=== PATIENT | male | born 1975 | race American Indian/Alaskan Native ===

== ENCOUNTER 2017-10-11 17:35 | Emergency (ER) | payer SELFPAY ==
[2017-10-11 18:14] VITALS: BP 115/79
== END 2017-10-11 20:45 | disposition left against medical advice (07) ==
LOC: ED 17:35
DX: M54.2 Cervicalgia (principal); Z53.21 Procedure and treatment not carried out due to patient leaving prior to being seen by health care provider

== ENCOUNTER 2017-10-23 16:49 | Emergency (ER) | payer MEDICAID ==
[2017-10-23 17:01] VITALS: BP 98/74
[2017-10-23 17:41] LABS: Bilirubin,Urine NEG (Negative); Blood,Urine NEG (Negative); Color,Urine Yellow (Yellow); Mucus,Urine FEW /HPF; Protein,Urine <15 mg/dL mg/dL (Negative)
== END 2017-10-23 17:30 | disposition left against medical advice (07) ==
LOC: ED 16:49
DX: Z53.21 Procedure and treatment not carried out due to patient leaving prior to being seen by health care provider (principal)
CPT/HCPCS: 81001; 82962

== ENCOUNTER 2017-10-26 16:48 | Emergency (ER) | payer MEDICAID ==
[2017-10-26 16:59] VITALS: BP 104/66
== END 2017-10-26 17:30 | disposition left against medical advice (07) ==
LOC: ED 16:48
DX: R10.9 Unspecified abdominal pain (principal); Z53.21 Procedure and treatment not carried out due to patient leaving prior to being seen by health care provider

== ENCOUNTER 2017-11-14 18:04 | Emergency (ER) | payer MEDICAID ==
[2017-11-14 18:36] VITALS: BP 107/77
[2017-11-14 19:16] LABS: Bilirubin,Urine NEG (Negative); Blood,Urine NEG (Negative); Color,Urine Yellow (Yellow); Protein,Urine <15 mg/dL mg/dL (Negative)
[2017-11-14 19:19] LABS: Basophils % (Auto) 1.2 % (0.0-1.8); Eosinophils # (Auto) 0.3 K/mm3 (0.0-0.4); Eosinophils % (Auto) 6.9 % (0.0-4.3); Hematocrit 45.6 % (35.5-45.6); Hemoglobin 15.1 gm/dl (11.8-15.2); Lymphocytes # (Auto) 1.7 K/mm3 (1.2-5.4); Lymphocytes % (Auto) 41.4 % (13.4-35.0); Mean Corpuscular HGB Conc 33 % (32-34); Mean Corpuscular Hemoglobin 31 pg (28-32); Mean Corpuscular Volume 95 fl (84-94); Monocytes # (Auto) 0.5 K/mm3 (0.0-0.8); Monocytes % (Auto) 11.2 % (0.0-7.3); Platelet Count 136 K/mm3 (140-440)
[2017-11-14 20:05] LABS: Alanine Aminotransferase 106 units/L (7-56); Albumin 3.5 g/dL (3.9-5); BUN/Creatinine Ratio 8; Blood Urea Nitrogen 8 mg/dL (9-20); Calcium 9.1 mg/dL (8.4-10.2); Hemolysis Index 15; Lipase 38 units/L (13-60)
== END 2017-11-14 21:05 | disposition left against medical advice (07) ==
LOC: ED 18:04
DX: R11.2 Nausea with vomiting, unspecified (principal); E11.9 Type 2 diabetes mellitus without complications; I10 Essential (primary) hypertension; F17.200 Nicotine dependence, unspecified, uncomplicated; Z53.21 Procedure and treatment not carried out due to patient leaving prior to being seen by health care provider
CPT/HCPCS: 36415; 80053; 81001; 82962; 83690; 85025

== ENCOUNTER 2017-12-17 22:45 | Emergency (ER) | payer MEDICAID ==
[2017-12-17 23:00] VITALS: BP 148/91
--- NOTE | 2017-12-18 01:01 | XRay Report ---
FINAL REPORT EXAM: XR SPINE CERVICAL 2-3V HISTORY: neck pain TECHNIQUE: Three views of the cervical spine were submitted. FINDINGS: There is straightening of the usual cervical lordosis secondary to patient positioning versus spasm. There is [id number] narrowing of the C3-C4 and C4-C5 disc with endplate spurring. The alignment appears normal. The pre vertebral soft tissues and C1-C2 articulation appear intact IMPRESSION: Straightening of the usual cervical lordosis secondary to patient positioning versus spasm. Disc degeneration with endplate spurring at the C3-C4 and C4-C5 levels.
== END 2017-12-18 01:15 | disposition left against medical advice (07) ==
LOC: ED 22:45
DX: M54.2 Cervicalgia (principal); Z53.21 Procedure and treatment not carried out due to patient leaving prior to being seen by health care provider
CPT/HCPCS: 72040

== ENCOUNTER 2018-01-02 13:44 | Emergency (ER) | payer MEDICAID ==
--- NOTE | 2018-01-02 14:06 | Emergency Department Report ---
HPI - General Chief Complaint: Extremity Injury, Lower Time Seen by Provider: 01/02/18 13:52 - HPI HPI: 42-year-old male presents to the emergency department by EMS from a assisted living facility with complaint of right thigh pain that has been going on since last night. He denies any trauma. He tried to ibuprofen without any relief. He denies any skin color change, rash, swelling. He has a past medical history of HIV and hypertension for which he says he takes medications. No recent travel or sick contacts at home. ED Past Medical Hx - Past Medical History Previous Medical History?: Yes Hx Hypertension: Yes Hx Diabetes: Yes Hx HIV: Yes Additional medical history: NECK AND BACK PAIN, Speech impedement - Surgical History Additional Surgical History: HEAD injury and had mouna - Social History Smoking Status: Current Every Day Smoker Substance Use Type: None ED Review of Systems ROS: Stated complaint: GENERAL WEAKNESS Other details as noted in HPI Comment: All other systems reviewed and negative Constitutional: denies: chills, fever Eyes: denies: eye pain, eye discharge, vision change ENT: denies: ear pain, throat pain Respiratory: denies: cough, shortness of breath, wheezing Cardiovascular: denies: chest pain, palpitations Gastrointestinal: denies: abdominal pain, nausea, diarrhea Genitourinary: denies: urgency, dysuria Musculoskeletal: arthralgia, myalgia Skin: denies: rash, lesions Neurological: denies: headache, weakness, paresthesias Physical Exam - Physical Exam Physical Exam: GENERAL: The patient is well-developed well-nourished. HENT: Normocephalic. Atraumatic. Patient has moist mucous membranes. EYES: Extraocular motions are intact. Trachea NECK: Supple. Trachea is midline. CHEST/LUNGS: Clear to auscultation. There is no respiratory distress noted. HEART/CARDIOVASCULAR: Regular. There is no tachycardia. There is no murmur. ABDOMEN: Abdomen is soft, nontender. Patient has normal bowel sounds. There is no abdominal distention. SKIN: Skin is warm and dry. NEURO: The patient is awake, alert, and oriented. The patient is cooperative. The patient has no focal neurologic deficits. The patient has normal speech. MUSCULOSKELETAL: There is some tenderness palpation to the middle of the right thigh but no obvious deformity. There is no limitation range of motion. ED Medical Decision Making - Radiology Data Radiology results: report reviewed, image reviewed interpreted by me: X-ray of the right femur does not show any fracture, dislocations or any acute process. Right lower extremity venous Doppler is negative for DVT - Medical Decision Making Patient presents with atraumatic right thigh pain. No swelling, rash or skin color change. No obvious deformity. X-ray was done of the right femur does not show any fracture or dislocation or any other acute process. Right lower extremity venous Doppler is negative for DVT. Patient refused labs to be done and then eloped from the emergency department after signing the AMA form. He was seen ambulating down the hallway as he left and did not appear unstable. - Differential Diagnosis DVT, muscle spasm, thigh strain, occult fracture Critical Care Time: No Critical care attestation.: If time is entered above; I have spent that time in minutes in the direct care of this critically ill patient, excluding procedure time. ED Disposition Clinical Impression: Right thigh pain Disposition: DC-07 LEFT AGAINST MED ADVICE Is pt being admited?: No Condition: Stable Referrals: PRIMARY CARE, [Primary Care Provider] - 3-5 Days
[2018-01-02 14:45] VITALS: BP 140/85
--- NOTE | 2018-01-02 15:32 | XRay Report ---
Right femur 2 views: History: Right thigh pain. Findings: No fracture, no periosteal reaction or lytic lesion tibia Impression: Essentially negative right femur.
== END 2018-01-02 15:45 | disposition left against medical advice (07) ==
LOC: ED 13:44
DX: M79.651 Pain in right thigh (principal); I10 Essential (primary) hypertension; E11.9 Type 2 diabetes mellitus without complications; F17.200 Nicotine dependence, unspecified, uncomplicated

== ENCOUNTER 2018-01-25 06:29 | Emergency (ER) | payer MEDICAID ==
[2018-01-25 06:48] VITALS: BP 125/95
--- NOTE | 2018-01-25 07:28 | XRay Report ---
FINAL REPORT EXAM: XR FOREARM RT HISTORY: right forearm pain. TECHNIQUE: AP and lateral views of the right forearm were obtained. FINDINGS: There is no evidence of fracture or soft tissue injury. The wrist and elbow joints not show any acute changes. IMPRESSION: No acute process identified
== END 2018-01-25 06:47 | disposition left against medical advice (07) ==
LOC: ED 06:29
DX: M79.89 Other specified soft tissue disorders (principal); Z53.21 Procedure and treatment not carried out due to patient leaving prior to being seen by health care provider

== ENCOUNTER 2018-02-05 11:41 | Emergency (ER) | payer MEDICAID ==
[2018-02-05 12:32] VITALS: BP 112/79
--- NOTE | 2018-02-05 14:27 | Emergency Department Report ---
ED Rash HPI - HPI Chief Complaint: Sore Throat Stated Complaint: SORE THROAT/BACK PAIN Time Seen by Provider: 02/05/18 14:02 Duration: 2 Days Location: Upper Extremities (bilateral upper extremity) Suspected Cause: Insect Rash Symptoms: Yes Itching, No Facial Swelling, No Tongue/Oral Swelling, No Breathing Difficulties, No Choking Sensation, No Wheezing/Dyspnea, No Peeling, No Blistering, No Fever, No Lightheaded, No Malaise, No Myalgias Severity: mild Other History: This is a 41-year-old -[place] male who presents with pruritic wrist bilateral upper extremity pink eyes for 2 days. Patient states he is living in a [place] [facility] and he noticed bed bugs 2 days ago. He reports multiple bumps on wrist and forearm are pruritic. He removed scab yesterday but it continues to itch. Patient denies drainage from eyes, itching or crusting. He is currently not taking anything for symptom relief. ED Review of Systems ROS: Stated complaint: SORE THROAT/BACK PAIN Other details as noted in HPI Constitutional: denies: chills, fever Eyes: other (bilateral pink eye). denies: eye pain, eye discharge, vision change Respiratory: denies: cough, shortness of breath, wheezing Cardiovascular: denies: chest pain, palpitations Gastrointestinal: denies: abdominal pain, nausea, diarrhea Skin: rash (bilateral upper extremities). denies: lesions Neurological: denies: headache, weakness, paresthesias Psychiatric: denies: anxiety, depression ED Past Medical Hx - Past Medical History Hx Hypertension: Yes Hx Diabetes: Yes Hx HIV: Yes (no treatment received) Additional medical history: NECK AND BACK PAIN, Speech impedement - Surgical History Additional Surgical History: HEAD injury and had mouna - Social History Smoking Status: Current Every Day Smoker Substance Use Type: None - Medications Home Medications: Home Medications Medication Instructions Recorded Confirmed Last Taken Type Naphazoline HCl/Glycerin [Clear 15 ml OP QID #1 bottle 02/05/18 Unknown Rx Eyes Redness Relief Drop] Pramoxine/Calamine 1-8% (Nf) 20 applic TP QID #1 bottle 02/05/18 Unknown Rx [Caladryl (Nf)] hydrOXYzine HCl [Hydroxyzine HCl] 25 mg PO Q8H PRN #15 tablet 02/05/18 Unknown Rx Rash Exam - Exam General: Vital signs noted. No distress. Alert and acting appropriately. HEENT: Yes Conjuctival Injection (bilaterally), No Periorbital Edema, No Chemosis, No Perioral Edema, No Tongue Edema, No Uvular Edema, No Compromised Airway, No Drooling Lungs: Yes Good Air Exchange (Normal Breath Sounds), No Wheezes, No Ronchi, No Stridor, No Cough, No Labored Respirations, No Retractions, No Use of Accessory Muscles, No Other Abnormal Lung Sounds Heart: Yes Regular, No Murmur Skin: Yes Maculopapular Rash (multiple 2-3 mm papules to bilateral forearm), No Urticarial Rash, No Morbilliform rash, No Bulla(e), No Excoriations, No Weeping , No Tenderness, No Erythema, No Edema, No Encrustations, No Other ED Course Vital Signs 02/05/18 12:28 Temperature 98.6 F Pulse Rate 96 H Respiratory 16 Rate Blood Pressure 112/79 O2 Sat by Pulse 100 Oximetry ED Medical Decision Making - Medical Decision Making Patient was examined by me. Vitals are normal and patient is in no acute distress. Physical findings susceptible of bed bug bites and viral conjunctivitis. Start hydroxyzine, pramoxine/calamine topical, and clear eye gtts. Plan discussed with patient to discharge home and treat outpatient. He agrees with ER plan. Patient discharged home in stable condition. Follow up with PCP in 2-3 days. Critical care attestation.: If time is entered above; I have spent that time in minutes in the direct care of this critically ill patient, excluding procedure time. ED Disposition Clinical Impression: Viral conjunctivitis of both eyes Bed bug bite Qualifiers: Encounter type: initial encounter Qualified Code(s): W57.XXXA - Bitten or stung by nonvenomous insect and other nonvenomous arthropods, initial encounter Disposition: DC-01 TO HOME OR SELFCARE Is pt being admited?: No Does the pt Need Aspirin: No Condition: Stable Instructions: Insect Bite or Sting (ED), Conjunctivitis (ED) Additional Instructions: Avoid scratching any lesions, and to keep the area clean and dry to reduce the risk of infection. All bedding and clothing should be laundered. All areas where bed bugs where visualized such as furniture, crevices in paul, and mattresses should be cleaned. Follow up with primary care provider in 2-3 days. Prescriptions: hydrOXYzine HCl [Hydroxyzine HCl] 25 mg PO Q8H PRN #15 tablet PRN Reason: Itching Naphazoline HCl/Glycerin [Clear Eyes Redness Relief Drop] 15 ml OP QID #1 bottle Pramoxine/Calamine 1-8% (Nf) [Caladryl (Nf)] 20 applic TP QID #1 bottle Referrals: [facility] [Outside] - 3-5 Days [facility] [Outside] - 3-5 Days [facility] [Outside] - 3-5 Days Time of Disposition: 14:43 Print Language: EMIRATI
== END 2018-02-05 14:52 | disposition home or self-care (01) ==
LOC: ED 11:41
DX: B30.9 Viral conjunctivitis, unspecified (principal); I10 Essential (primary) hypertension; E11.9 Type 2 diabetes mellitus without complications; F17.200 Nicotine dependence, unspecified, uncomplicated; Z21 Asymptomatic human immunodeficiency virus [HIV] infection status
CPT/HCPCS: 99282

== ENCOUNTER 2018-02-10 18:02 | Emergency (ER) | payer MEDICAID ==
[2018-02-10 18:52] VITALS: BP 115/88
== END 2018-02-10 22:44 | disposition left against medical advice (07) ==
LOC: ED 18:02
DX: R69 Illness, unspecified (principal); Z53.21 Procedure and treatment not carried out due to patient leaving prior to being seen by health care provider

== ENCOUNTER 2018-03-01 17:08 | Emergency (ER) | payer MEDICAID ==
[2018-03-01 17:15] VITALS: BP 134/90
== END 2018-03-01 19:45 | disposition left against medical advice (07) ==
LOC: ED 17:08
DX: R10.9 Unspecified abdominal pain (principal); Z53.21 Procedure and treatment not carried out due to patient leaving prior to being seen by health care provider